=== PATIENT | male | born 1965 | race Caucasian/White ===

== ENCOUNTER 2018-07-23 00:23 | Day surgery (SDC) | payer OTHER ==
[2018-07-23] VITALS (7 sets, daily range): BP systolic 102–139; BP diastolic 62–103
[~2018-07-23] VITALS: Ht 180.3 cm; Wt 77.6 kg
[~2018-07-23 00:23] MED LIST: ATOR10TA24 PO
[2018-07-23] MEDS ORDERED: NORMOSOL R SOLN(*) 1000 ML BAG 1,000 ML IV PRN (06:45)
[2018-07-23] MEDS ORDERED: LIDOCAINE/SOD BICARB 8.4% SYR ID ONE (06:45)
[2018-07-23] MEDS ORDERED: LIDOCAINE MPF 1% 5 ML VIAL ONE (07:02)
[2018-07-23] MEDS ORDERED: PROPOFOL EMUL(*) 10MG/ML 20 ML 40 ML ONE (07:02)
== END 2018-07-23 09:15 | disposition home or self-care (01) ==
LOC: OR 00:23
PROVIDERS: ATTEND Family Medicine
DX: Z12.11 Encounter for screening for malignant neoplasm of colon (principal); K57.30 Diverticulosis of large intestine without perforation or abscess without bleeding
CPT/HCPCS: 00812; 45378; J2001; J2704